=== PATIENT | male | born 2005 | race Caucasian/White ===

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

== ENCOUNTER 2024-08-20 16:17 | Emergency (ER) | payer OTHER, SELFPAY ==
[2024-08-20 16:18] VITALS: BP 118/70; PULSE 58; RESP 16; TEMP 36.6; O2SAT 98; BMI 24.5
--- NOTE | 2024-08-20 16:40 | RAD_ITS ---
INDICATION: FALL EXAMINATION/TECHNIQUE: X-RAY - RIGHT XR Shoulder Min 2 Views COMPARISON: No previous relevant examinations for comparison. FINDINGS: SOFT TISSUES: No soft tissue swelling or gas. No radiopaque foreign body. BONES/JOINTS: 1. No acute fracture or subluxation.. Normal alignment. Preservation of the joint space.. No sclerotic or destructive changes observed. 2. There is normal glenohumeral motion. There is normal alignment of the acromioclavicular joint. 3. The clavicle, acromion, scapula and rib cage have normal appearance. RAD/Shoulder min 2 Views IMPRESSION: 1. No fracture malalignment or focal bony or joint space abnormality involving the shoulder.. Electronically Signed: Derek Cordero MD at 17:11 EST ,
--- NOTE | 2024-08-20 19:28 | EX.ED.UPPERE ---
HPI <HECTOR Perry - Last Filed: 08/20/24 21:22> History of Present Illness Chief Complaint: Upper Extremity Injury Narrative Narrative: Patient presenting today with pain in his right shoulder after an injury occurred this afternoon. He was standing on a sled when he slipped and fell onto his right shoulder. He denies hitting his head or any LOC. He is right-handed. He reports decreased range of motion in his right shoulder due to pain. He denies any paresthesias to his right arm. PFSH <HECTOR Perry - Last Filed: 08/20/24 21:22> REPLACED BY [facility] Home Medications ?Medication ?Instructions ?Recorded ?Last Taken ?Type NK 08/20/24 Unknown History Allergy/AdvReac Type Severity Reaction Status Date / Time No Known Allergies Allergy Verified 08/20/24 16:18 Social History Smoking Status: Never smoker ROS <HECTOR Perry - Last Filed: 08/20/24 21:22> ROS ED Constitutional Constitutional ED: Denies chills or fever(s) Cardiovascular Cardiovascular: Denies chest pain Respiratory/Chest Respiratory/Chest: Denies dyspnea Musculoskeletal Musculoskeletal: Reports arthralgias Integumentary Denies Abrasions or rash Neurologic Neurologic: Denies paresthesias EXAM <HECTOR Perry - Last Filed: 08/20/24 21:22> Physical Exam Const Vital Signs: 08/20/24 16:18 Temperature 98 F Temperature Source Oral Pulse Rate 58 L Respiratory Rate 16 Blood Pressure 118/70 Blood Pressure Mean 86 Pulse Ox 98 Oxygen Delivery Method Room Air Positive well nourished, well developed and no apparent distress General Appearance ED: well developed HEENT Reports normocephalic and head/scalp atraumatic Mouth ED: Yes moist mucous membranes normal Eyes PERRL and EOMs intact bilaterally Neck full ROM and supple Chest Wall inspection of chest normal Resp normal respiratory effort and clear to auscultation bilaterally Cardio regular rate and regular rhythm Back/Spine normal ROM and normal to inspection Extremity normal to inspection Extremity Narrative: Decreased range of motion to the right shoulder secondary to pain, pain to palpation to the AC joint. Right radial pulse 2+, good cap refill, sensation intact. Neuro oriented x3, CN's II-XII intact bilaterally, moves all extremities, no focal motor deficits and no sensory deficits noted Sensorium / Orientation: awake and alert Psych mental status grossly normal and thought process normal Skin no rashes or lesions noted and no wounds [facility] <HECTOR Perry - Last Filed: 08/20/24 21:22> [facility] Narrative Medical decision making narrative: Patient presenting today with pain to the right shoulder after falling off of a sled that he was standing on and landing on the right shoulder. He does have pain to the right AC joint. X-ray does not show any evidence of fracture but does show a right AC joint separation as instructed by the attending ED physician, likely grade 3. I did have radiology print him off a disc so he can take this to his with rest. He was given ibuprofen here for pain and a sling. Recommended he alternate Tylenol and ibuprofen as needed for pain at home. He will be traveling back to his college town and will have to follow-up with an warehouse specialist there. Patient discharged home in stable condition. Radiography X-Ray: Read by ED Physician Diagnostic Testing: Clinical Impression(s) from Imaging Studies Shoulder X-Ray 08/20/24 16:40 IMPRESSION: 1. No fracture malalignment or focal bony or joint space abnormality involving the shoulder.. Electronically Signed: Derek Cordero MD at 17:11 EST , <Dr. Sanya Love MD - Last Filed: 08/20/24 20:01> [facility] Treatment and Re-Evaluation Narrative: I have personally performed a face to face assessment of the patient and have reviewed the BERNADETTE Note. I performed a substantive portion of the visit including all aspects of the following. My pittman findings include: History is fall onto right shoulder while standing on a sled, sledding in the snow. Trouble lifting his right arm due to pain in the shoulder, no numbness tingling weakness. No other injuries. Exam is patient is tender at the acromioclavicular joint, especially at the distal aspect of the clavicle which is swollen a little. No proximal humerus tenderness. Neurovascular intact distally right upper extremity. Medical Decison Making three-view x-ray series of the right shoulder on my interpretation shows an acromioclavicular separation, likely grade 3. I disagree with the radiologist on this. Patient given anti-inflammatories placed in a sling, he is doing well clinically, advised to follow-up with orthopedics. He is going to be traveling out of town for college and we gave him x-rays on a disk. Other additions or changes: [None] Discharge Plan Triage Chief Complaint: Upper Extremity Injury ED Midlevel Provider: Lucretia Nelson ED Provider: Sanya Love Dx/Rx/DC Orders Clinical Impression: Separation of right acromioclavicular joint Instructions: ED Sprain AC Joint Prescriptions: No Action NK Primary Care Provider: Bg Hicks Referrals: Bg Hicks MD [Primary Care Provider] - 1 Week German Christopher MD [Med Staff - Active Staff] - 1 Week Activity Restrictions/Additional Instructions: Please follow-up with an orthopedist in 1 week, alternate Tylenol and ibuprofen as needed for your pain, ice the area several times daily for 15 to 20 minutes at a time to help with pain. Print Language: Mexican Disposition Disposition: Home, Self Care Discharge Date/Time: 08/20/24 19:39
[2024-08-20] MEDS: Ibuprofen 200 MG Tablet 400 MG PO (19:31)
[2024-08-20 19:38] VITALS: BP 115/67; PULSE 69; RESP 16; TEMP 36.7; O2SAT 100
== END 2024-08-20 19:39 | disposition home or self-care (01) ==
PROVIDERS: Emergency Provider Emergency Medicine; PCP Pediatrics; Visit Provider Emergency Medicine
DX: S43.101A Unspecified dislocation of right acromioclavicular joint, initial encounter (principal); V00.221A Fall from sled, initial encounter; Y93.23 Activity, snow (alpine) (downhill) skiing, snowboarding, sledding, tobogganing and snow tubing; Y99.8 Other external cause status
CPT/HCPCS: 73030; 99283